=== PATIENT | male | born 1990 | race Native Hawaiian/Other Pacific Islander ===

== ENCOUNTER 2018-04-05 19:25 | Emergency (ER) | payer OTHER ==
[~2018-04-05] VITALS: Ht 172.7 cm; Wt 77.3 kg
[2018-04-05] MEDS ORDERED: CYMB60CA3 PO (19:35)
--- NOTE | 2018-04-05 20:59 | REPVR ---
EXAM: CT Lumbar Spine Without Contrast EXAM DATE/TIME: 04/05/2018 8:32 PM CLINICAL HISTORY: 27 years old, male; Pain; Low back pain and sciatica; Bilateral; Additional info: Trauma, pain and sciatica lower legs TECHNIQUE: Axial computed tomography images of the lumbar spine without intravenous contrast. All CT scans at this facility use at least one of these dose optimization techniques: automated exposure control; mA and/or kV adjustment per patient size (includes targeted exams where dose is matched to clinical indication); or iterative reconstruction. Coronal and sagittal reformatted images were created and reviewed. COMPARISON: No relevant prior studies available. FINDINGS: Vertebrae: No acute fracture. Normal alignment. Soft tissues: Unremarkable. DISCS/SPINAL CANAL/NEURAL FORAMINA: L1-L2: Early degenerative spurring anteriorly. No significant disc bulge or protrusion. No significant facet arthropathy. No spinal or foraminal stenosis. L2-L3: Early degenerative change of the left facet with no spinal or foraminal stenosis. L3-L4: The disc is adequately well maintained with early degenerative change of the left facet. No spinal or foraminal stenosis. L4-L5: Disc is adequately well maintained. There is early facet arthropathy and no spinal or foraminal stenosis. L5-S1: Minimal posterior central protrusion of the disc with early osteophytes and minimal facet arthropathy. No significant spinal or foraminal stenosis. IMPRESSION: 1. Early degenerative disc and facet changes with no spinal or foraminal stenosis. 2. No acute fracture or subluxation. Electronically signed by: Joseph Holbrook On 04/05/2018 20:59:01 PM
[2018-04-05 21:27] VITALS: BP 122/65
== END 2018-04-05 21:29 | disposition home or self-care (01) ==
LOC: M ED 19:25
DX: S20.229A Contusion of unspecified back wall of thorax, initial encounter (principal); W10.9XXA Fall (on) (from) unspecified stairs and steps, initial encounter; Y92.89 Other specified places as the place of occurrence of the external cause; M51.37 Other intervertebral disc degeneration, lumbosacral region; Z79.899 Other long term (current) drug therapy

== ENCOUNTER 2018-04-12 19:31 | Emergency (ER) | payer OTHER ==
[~2018-04-12] VITALS: Ht 172.7 cm; Wt 77.3 kg
[~2018-04-12 19:31] MED LIST: CYMB60CA3 PO
[2018-04-12] MEDS ORDERED: KETOROLAC 30 MG/ML VIAL (J1885) IV ONE (20:15)
[2018-04-12 20:35] LABS: BASO % 0.2 % (0.0-1.0); EOS % 0.2 % (0.0-3.0); HEMATOCRIT 45.2 % (42.0-52.0); HEMOGLOBIN 15.7 g/dl (13.5-17.5); LYMPH # 1.7 10^3/uL (1.5-6.5); LYMPH % 17.1 % (24.0-44.0); MEAN CORPUSCULAR HEMOGLOBIN 30.3 pg (27.0-33.0); MEAN CORPUSCULAR HGB CONC 34.7 g/dl (32.0-36.5); MEAN CORPUSCULAR VOLUME 87.1 fl (80.0-96.0); MONO # 0.3 10^3/uL (0.0-0.8); MONO % 3.2 % (0.0-5.0); NEUTROPHILS # 7.6 10^3/uL (1.8-7.7); PLATELET COUNT, AUTOMATED 246 10^3/uL (150-450); RED BLOOD COUNT 5.19 10^6/uL (4.30-6.10); WHITE BLOOD COUNT 9.7 10^3/uL (4.0-10.0)
[2018-04-12 20:54] LABS: BLOOD UREA NITROGEN 13 MG/DL (7-18); CALCIUM LEVEL 9.3 MG/DL (8.5-10.1); CARBON DIOXIDE LEVEL 27 MEQ/L (21-32); CHLORIDE LEVEL 104 MEQ/L (98-107); CREATININE FOR GFR 0.92 MG/DL (0.70-1.30); GLOMERULAR FILTRATION RATE > 60.0 (>60); GLUCOSE, FASTING 106 MG/DL (70-100); POTASSIUM SERUM 4.3 MEQ/L (3.5-5.1); SODIUM LEVEL 138 MEQ/L (136-145)
--- NOTE | 2018-04-12 21:06 | REPVR ---
EXAM: CT Head Without Contrast EXAM DATE/TIME: 04/12/2018 8:17 PM CLINICAL HISTORY: 27 years old, male; Injury or trauma; Fall; Initial encounter; Blunt trauma (contusions or hematomas); Consciousness not specified; Additional info: Fall, incontinence TECHNIQUE: Axial computed tomography images of the head/brain without contrast. All CT scans at this facility use at least one of these dose optimization techniques: automated exposure control; mA and/or kV adjustment per patient size (includes targeted exams where dose is matched to clinical indication); or iterative reconstruction. COMPARISON: No relevant prior studies available. FINDINGS: Brain: Normal. No hemorrhage. No significant white matter disease. No edema. Ventricles: Normal. No ventriculomegaly. Bones/joints: Unremarkable. No acute fracture. Sinuses: Visualized sinuses are unremarkable. No acute sinusitis. Mastoid air cells: Visualized mastoid air cells are unremarkable. No mastoid effusion. Soft tissues: Unremarkable. IMPRESSION: No acute intracranial abnormality. Electronically signed by: Sheyla Pruett On 04/12/2018 21:06:14 PM
--- NOTE | 2018-04-12 21:09 | REPVR ---
EXAM: CT Cervical Spine Without Contrast EXAM DATE/TIME: 04/12/2018 8:17 PM CLINICAL HISTORY: 27 years old, male; Injury or trauma; Fall; Initial encounter; Blunt trauma; Additional info: Fall, incontinence TECHNIQUE: Axial computed tomography images of the cervical spine without intravenous contrast. All CT scans at this facility use at least one of these dose optimization techniques: automated exposure control; mA and/or kV adjustment per patient size (includes targeted exams where dose is matched to clinical indication); or iterative reconstruction. Coronal and sagittal reformatted images were created and reviewed. COMPARISON: No relevant prior studies available. FINDINGS: Vertebrae: No acute fracture. Normal alignment. Soft tissues: Unremarkable. Lungs: Lung apices are normal. DISCS/SPINAL CANAL/NEURAL FORAMINA: C2-C3: No disc herniation. No spinal stenosis. No neural foraminal narrowing. C3-C4: No disc herniation. No spinal stenosis. No neural foraminal narrowing. C4-C5: No disc herniation. No spinal stenosis. No neural foraminal narrowing. C5-C6: No disc herniation. No spinal stenosis. No neural foraminal narrowing. C6-C7: No disc herniation. No spinal stenosis. No neural foraminal narrowing. C7-T1: No disc herniation. No spinal stenosis. No neural foraminal narrowing. IMPRESSION: No acute findings. Electronically signed by: Sheyla Pruett On 04/12/2018 21:09:00 PM
--- NOTE | 2018-04-12 21:11 | REPVR ---
EXAM: CT Lumbar Spine Without Contrast EXAM DATE/TIME: 04/12/2018 8:17 PM CLINICAL HISTORY: 27 years old, male; Injury or trauma; Fall; Initial encounter; Blunt trauma (contusions or hematomas); Additional info: Fall, incontinence TECHNIQUE: Axial computed tomography images of the lumbar spine without intravenous contrast. All CT scans at this facility use at least one of these dose optimization techniques: automated exposure control; mA and/or kV adjustment per patient size (includes targeted exams where dose is matched to clinical indication); or iterative reconstruction. Coronal and sagittal reformatted images were created and reviewed. COMPARISON: CT Spine, lumbar w/o contrast 04/05/2018 8:26 PM FINDINGS: Vertebrae: No acute fracture. Normal alignment. Soft tissues: Unremarkable. DISCS/SPINAL CANAL/NEURAL FORAMINA: L1-L2: No disc herniation. No spinal stenosis. No neural foraminal narrowing. L2-L3: No disc herniation. No spinal stenosis. No neural foraminal narrowing. L3-L4: No disc herniation. No spinal stenosis. No neural foraminal narrowing. L4-L5: No disc herniation. No spinal stenosis. No neural foraminal narrowing. L5-S1: No disc herniation. No spinal stenosis. No neural foraminal narrowing. IMPRESSION: No acute findings. Electronically signed by: Sheyla Pruett On 04/12/2018 21:11:26 PM
[2018-04-12] MEDS ORDERED: LORazepam 2 MG/ML VIAL (J2060) IV STA (21:12)
[2018-04-12] MEDS ORDERED: ONDANSETRON 4MG/2ML VIAL (J2405) IV ONE (21:15)
--- NOTE | 2018-04-12 21:36 | REPVR ---
EXAM: MR Lumbar Spine Without Contrast. EXAM DATE/TIME: 04/12/2018 9:02 PM CLINICAL HISTORY: 27 years old, male; Signs and symptoms; Other: Leg weakness and incontinence; Additional info: Low back pain, bladder/bowel incont TECHNIQUE: Multiplanar magnetic resonance images of the lumbar spine without intravenous contrast. COMPARISON: CT Spine, lumbar w/o contrast 04/12/2018 8:06 PM FINDINGS: The study could not be completed as the patient began vomiting. The axial T2-weighted images were not completed. Vertebrae: Unremarkable. No fracture. Spinal cord: Normal signal. No cord compression. The conus is posterior to T12-L1. No signal abnormality seen in the visualized portion of the conus. DISCS/SPINAL CANAL/NEURAL FORAMINA: L1-L2: No significant disc disease. No stenosis. L2-L3: No significant disc disease. No stenosis. L3-L4: No significant disc disease. No stenosis. L4-L5: No significant disc disease. No stenosis. L5-S1: Minimal loss of normal signal within the annulus on the T2 weighted images. Small posterior concentric tear within the disc annulus. Small left posterior paracentral disc protrusion.. No stenosis. Soft tissues: Incidental note is made of a distended bladder. The bladder measures at least 14 x 10 x 10 cm for a volume of 730 cc IMPRESSION: Mild degenerative changes at L5-S1 with small concentric annular tear posteriorly. Small left posterolateral disc protrusion. No stenosis. No cord compression. 2. The bladder is distended containing at least 730 cc of urine Electronically signed by: Sheyla Pruett On 04/12/2018 21:36:14 PM
[2018-04-12 22:45] LABS: AMPHETAMINES LEVEL URINE NEGATIVE (NEGATIVE); BARBITURATES URINE NEGATIVE (NEGATIVE); BENZODIAZEPINES URINE NEGATIVE (NEGATIVE); CANNABINOIDS URINE NEGATIVE (NEGATIVE); COCAINE METABOLITE URINE NEGATIVE (NEGATIVE); METHADONE URINE NEGATIVE (NEGATIVE); OPIATES URINE NEGATIVE (NEGATIVE); PHENCYCLIDINE URINE NEGATIVE (NEGATIVE)
[2018-04-12 23:06] VITALS: BP 139/86
== END 2018-04-12 23:15 | disposition short-term general hospital (02) ==
LOC: EDBD 19:31 → M ED 19:31
DX: M54.5 Low back pain (principal); R32 Unspecified urinary incontinence; R29.6 Repeated falls; Z79.899 Other long term (current) drug therapy
CPT/HCPCS: 70450; 72125; 72131; 72148; 80048; 80307; 85025; 96374; 96375; 99285; J1885; J2405

== ENCOUNTER 2018-04-16 07:38 | Emergency (ER) | payer OTHER ==
[~2018-04-16] VITALS: Ht 172.7 cm; Wt 76.4 kg
[2018-04-16] MEDS ORDERED: KETOROLAC 60 MG/2 ML VIAL (J1885) IM ONE (08:00)
--- NOTE | 2018-04-16 08:26 | REP ---
Acute abdominal series: Three views. History: Diffuse abdominal pain. Findings: Upright chest radiograph is normal. There is no evidence of infiltrate or free subdiaphragmatic air. Heart size is normal. Supine and erect views of the abdomen show air and some fluid in the right colon. There is some scattered gas in the left colon. No large or small bowel dilation is seen. Psoas margins and flank stripes are intact. No mass or organomegaly seen. Impression: Colonic air fluid levels without large or small bowel dilation. Question enteritis. No evidence of free air or other acute abnormality. Electronically Signed by Cedric Argueta MD 04/16/2018 10:02 A
[2018-04-16] MEDS ORDERED: NS 1,000 ML IV ONE (08:30)
[2018-04-16] MEDS ORDERED: METOCLOPRAMIDE INJ 10MG/2ML VIAL (J2765) IV ONE (08:30)
[2018-04-16] MEDS: GASTROGRAFIN SOLUTION 30ML PO SCH ×2 (08:48→09:31)
[2018-04-16 08:49] LABS: BASO % 0.3 % (0.0-1.0); EOS # 0.1 10^3/uL (0.0-0.50); EOS % 1.3 % (0.0-3.0); HEMOGLOBIN 15.2 g/dl (13.5-17.5); LYMPH # 2.2 10^3/uL (1.5-6.5); LYMPH % 19.7 % (24.0-44.0); MEAN CORPUSCULAR HGB CONC 34.5 g/dl (32.0-36.5); MEAN CORPUSCULAR VOLUME 86.8 fl (80.0-96.0); MONO # 0.8 10^3/uL (0.0-0.8); MONO % 7.3 % (0.0-5.0); NEUTROPHILS # 7.8 10^3/uL (1.8-7.7); NEUTROPHILS % 70.9 % (36.0-66.0); PLATELET COUNT, AUTOMATED 252 10^3/uL (150-450); RED BLOOD COUNT 5.07 10^6/uL (4.30-6.10)
[2018-04-16 08:58] LABS: APPEARANCE, URINE CLEAR (CLEAR); BACTERIA, URINE AUTO NEGATIVE (NEGATIVE); BILIRUBIN, URINE AUTO NEGATIVE (NEGATIVE); BLOOD, URINE BLOOD NEGATIVE (NEGATIVE); COLOR, URINE YELLOW (YELLOW); GLUCOSE, URINE (UA) AUTO NEGATIVE (NEGATIVE); KETONE, URINE AUTO TRACE mg/dL (NEGATIVE); LEUKOCYTE ESTERASE, URINE AUTO NEGATIVE (NEGATIVE); MUCUS, URINE SMALL (NEGATIVE); NITRITE, URINE AUTO NEGATIVE (NEGATIVE); PROTEIN, URINE AUTO NEGATIVE (NEGATIVE); RBC, URINE AUTO 1 /HPF (0-3); SPECIFIC GRAVITY URINE AUTO 1.024 (1.002-1.035); SQUAMOUS EPITHELIAL CELL UR AU 0 /HPF (0-6); WBC, URINE AUTO 1 /HPF (0-3)
[2018-04-16 09:22] LABS: ALBUMIN 4.2 GM/DL (3.2-5.2); ALT/SGPT 17 U/L (12-78); BILIRUBIN,TOTAL 1.1 MG/DL (0.2-1.0); BLOOD UREA NITROGEN 13 MG/DL (7-18); C REACTIVE PROTEIN QUANTITATIV 0.86 MG/DL (0.00-0.30); CALCIUM LEVEL 9.7 MG/DL (8.5-10.1); CARBON DIOXIDE LEVEL 29 MEQ/L (21-32); CHLORIDE LEVEL 104 MEQ/L (98-107); GLOMERULAR FILTRATION RATE > 60.0 (>60); GLUCOSE, FASTING 116 MG/DL (70-100); LIPASE 149 U/L (73-393); POTASSIUM SERUM 3.9 MEQ/L (3.5-5.1); SODIUM LEVEL 140 MEQ/L (136-145); TOTAL PROTEIN 8.7 GM/DL (6.4-8.2)
[2018-04-16] MEDS ORDERED: ISOVUE-370 76% 100ML VIAL (Q9967) As Ordered ONE (10:23)
[2018-04-16 11:09] VITALS: BP 123/76
--- NOTE | 2018-04-16 11:34 | REP ---
CT ABDOMEN AND PELVIS WITH IV AND ORAL CONTRAST: HISTORY: Question obstruction. Air-fluid levels on x-ray. Constipation. No comparison CT study. Comparison is made with today's chest and abdomen series. CT CONTRAST DOSE: 100 mL of intravenous Isovue 370. CT FINDINGS: Preliminary digital paintless dent repair technician radiograph shows a few air-filled small bowel loops in the central abdomen. The lung bases are clear. The liver and the spleen are normal in size, homogeneous in texture on postcontrast images with the exception of a small hypervascular area in the liver adjacent to the gallbladder. This measures 1.1 cm in greatest diameter and is compatible with a hepatic hemangioma. No gallbladder abnormalities observed. The adrenal glands are normal bilaterally. No pancreatic abnormality is seen. The kidneys enhance symmetrically and are morphologically intact. Normal caliber aorta is seen. The common hepatic artery takes a direct aortic origin, which is a normal variant. No other vascular abnormality is seen. Seminal vesicles, prostate, and urinary bladder are unremarkable. Small and large bowel loops are normal by CT. No obstruction is seen. No mass or inflammatory change is noted. A normal appendix is seen looped into the central pelvis in the midline. No abdominal wall defect is seen. IMPRESSION: 1.1 cm hemangioma of the liver in the left hepatic lobe adjacent to the gallbladder. Otherwise, negative CT study abdomen and pelvis with IV and oral contrast. No gastrointestinal obstructive or inflammatory lesion is seen. There is no evidence of fecal impaction or obstipation. Normal appendix. Electronically Signed by Cedric Argueta MD 04/16/2018 08:31 P
[2018-04-16] MEDS ORDERED: COLA100C5 PO (11:41)
[2018-04-16] MEDS ORDERED: MAGN1SOL2 PO (11:41)
== END 2018-04-16 11:53 | disposition home or self-care (01) ==
LOC: M ED 07:38
DX: K59.00 Constipation, unspecified (principal); F33.9 Major depressive disorder, recurrent, unspecified; Z79.899 Other long term (current) drug therapy
CPT/HCPCS: 74021; 74177; 80053; 81001; 83690; 85025; 86140; 96360; 96361; 96372; 99284; J1885; Q9963; Q9967

== ENCOUNTER 2018-08-19 02:03 | Emergency (ER) | payer OTHER ==
[~2018-08-19] VITALS: Ht 175.3 cm; Wt 77.3 kg
[~2018-08-19 02:03] MED LIST changes: +COLA100C5 PO; +MAGN1SOL2 PO
[2018-08-19] MEDS ORDERED: IBUP80TA PO (02:11)
[2018-08-19] MEDS ORDERED: KETOROLAC 60 MG/2 ML VIAL (J1885) IM ONE (03:15)
[2018-08-19 03:45] VITALS: BP 141/65
--- NOTE | 2018-08-19 08:43 | REP ---
RIGHT SHOULDER, THREE VIEWS: There is no evidence of an acute fracture, dislocation or intrinsic bone disease. IMPRESSION: No fracture or dislocation. Electronically Signed by Mick Rodriguez MD 08/20/2018 10:30 A
== END 2018-08-19 03:46 | disposition home or self-care (01) ==
LOC: M ED 02:03
DX: M25.511 Pain in right shoulder (principal)
CPT/HCPCS: 73030; 96372; 99284; J1885

== ENCOUNTER 2019-02-03 06:35 | Emergency (ER) | payer OTHER ==
[~2019-02-03] VITALS: Ht 172.7 cm; Wt 79.1 kg
[~2019-02-03 06:35] MED LIST changes: +IBUP80TA PO
[2019-02-03 07:11] VITALS: BP 141/78
== END 2019-02-03 07:35 | disposition home or self-care (01) ==
LOC: M ED 06:35
DX: S80.12XA Contusion of left lower leg, initial encounter (principal); V49.49XA Driver injured in collision with other motor vehicles in traffic accident, initial encounter; Y92.410 Unspecified street and highway as the place of occurrence of the external cause; F33.9 Major depressive disorder, recurrent, unspecified

== ENCOUNTER 2019-04-28 22:03 | Emergency (ER) | payer OTHER ==
[~2019-04-28] VITALS: Ht 172.7 cm; Wt 75.9 kg
[2019-04-28] MEDS ORDERED: ONDANSETRON 4 MG ORAL DISINTEGRATING TAB (Q0162 PER 1MG) PO ONE (22:15)
[2019-04-28] MEDS ORDERED: ACETAMINOPHEN TAB 650MG DOSE (2X325MG) PO ONE (22:45)
[2019-04-28 22:46] LABS: INFLUENZA A AMPLIFICATION POSITIVE (NEGATIVE); INFLUENZA B AMPLIFICATION NEGATIVE (NEGATIVE)
[2019-04-28] MEDS ORDERED: OSELTAMIVIR PHOSPHATE 75 MG CAP (TAMIFLU) PO ONE (23:15)
[2019-04-28] MEDS ORDERED: METOCLOPRAMIDE 10 MG TAB PO ONE (23:15)
[2019-04-28] MEDS ORDERED: ZOFR4TAB16 PO (23:26)
[2019-04-28] MEDS ORDERED: OSEL75CA PO (23:26)
[2019-04-28] MEDS ORDERED: IBUP-1022 PO (23:26)
[2019-04-28 23:33] VITALS: BP 136/78
== END 2019-04-28 23:45 | disposition home or self-care (01) ==
LOC: M ED 22:03
DX: J10.1 Influenza due to other identified influenza virus with other respiratory manifestations (principal); R50.9 Fever, unspecified; R68.89 Other general symptoms and signs
CPT/HCPCS: 87502; 99283; Q0162

== ENCOUNTER 2020-01-26 03:31 | Emergency (ER) | payer OTHER ==
[~2020-01-26] VITALS: Ht 175.3 cm; Wt 82.9 kg
[~2020-01-26 03:31] MED LIST changes: +IBUP-1022 PO; +OSEL75CA PO; +ZOFR4TAB16 PO
[2020-01-26] MEDS ORDERED: MELA10CA2 PO (03:43)
[2020-01-26] MEDS ORDERED: PROAAER10 INH (03:45)
--- NOTE | 2020-01-26 04:28 | REPVR ---
PROCEDURE INFORMATION: Exam: CT Head Without Contrast Exam date and time: 01/26/2020 3:56 AM Age: 29 years old Clinical indication: Injury or trauma; Fall; Blunt trauma (contusions or hematomas); Additional info: Ran into door while sleep walking to bathroom TECHNIQUE: Imaging protocol: Computed tomography of the head without contrast. Radiation optimization: All CT scans at this facility use at least one of these dose optimization techniques: automated exposure control; mA and/or kV adjustment per patient size (includes targeted exams where dose is matched to clinical indication); or iterative reconstruction. COMPARISON: CT Head without contrast 04/12/2018 8:02 PM FINDINGS: Brain: The cortical/white matter interfaces are preserved throughout the brain. There is no evidence of intracranial hemorrhage. No parenchymal mass lesions identified. Cerebral ventricles: The ventricular system is normal in size and configuration. Bones/joints: No acute fractures of the skull are identified. Paranasal sinuses: There is a benign sinus mucous retention cyst or polyp partially visualized in the left maxillary sinus. The paranasal sinuses are otherwise clear. No fluid levels. Mastoid air cells: The mastoid air cells are clear. Soft tissues: There is a superficial defect consistent with a laceration and mild adjacent soft tissue swelling and infiltration in the anterior right frontal region. IMPRESSION: 1. Normal appearance of the brain. No evidence of acute intracranial injury. 2. Right anterior frontal laceration and associated small superficial hematoma. Electronically signed by: Manju Monge On 01/26/2020 04:28:07 AM
[2020-01-26] MEDS ORDERED: LIDOCAINE 1% MDV 20ML VIAL SC ONE (05:00)
[2020-01-26 05:15] VITALS: BP 138/77
== END 2020-01-26 06:15 | disposition home or self-care (01) ==
LOC: M ED 03:31
DX: S01.81XA Laceration without foreign body of other part of head, initial encounter (principal); S06.0X9A Concussion with loss of consciousness of unspecified duration, initial encounter; W22.8XXA Striking against or struck by other objects, initial encounter; Y92.019 Unspecified place in single-family (private) house as the place of occurrence of the external cause; Y93.9 Activity, unspecified; Z79.899 Other long term (current) drug therapy

== ENCOUNTER 2020-04-29 16:48 | Emergency (ER) | payer OTHER ==
[~2020-04-29] VITALS: Ht 175.3 cm; Wt 81.8 kg
[~2020-04-29 16:48] MED LIST changes: +MELA10CA2 PO; +PROAAER10 INH
--- OUTSIDE RECORDS SUMMARY | 2020-04-29 16:53 | CCD ---
Author Organization Unknown Address [address] [place] [address] Phone [phone] Care Team Providers Care Fuel Cell Systems Engineer Name Role Phone [facility] 3 [phone] Allergies Code Code System Name Reaction Severity Status Onset NKDA Medications No Medications Reported Problems None recorded. Procedures Date Name Performed by 11/18/2018 Shoulder Joint Surgery Notes: right labrum Information not available Results Lab Results Date Name Specimen Result Interpretation Description Value Range Status Address 03/16/2020 [facility] Pdf Report NOS No observation recorded. [facility]: [facility] 03/16/2020 COVID-19 RNA (SARS-CoV-2), QL, hadoop java developer-PCR, Respirat ory Specimen NOS Normal Sars-cov-2 negative negative Final [facility]: [facility] [place] Past Encounters 03/19/2020 Lumbar Radiculopathy; Degeneration of Lumbar Intervertebral Disc; Degeneration of Lumbosacral Intervertebral Disc; Displacement of Lumbar Intervertebral Disc without Myelopathy; Intervertebral Disc Disorder; Spondylosis without Myelopathy; Lumbosacral Spondylosis without Myelopathy; Inflammation of Sacroiliac Joint Jarvis Cross MD: [id number] [address], Ph. 03/16/2020 Pre-surgery Testing; Viral Screening Jarvis Cross MD: [id number] [address], [facility] [place] [address], Ph. [phone] 03/15/2020 Lumbar Radiculopathy; Degeneration of Lumbar Intervertebral Disc; Degeneration of Lumbosacral Intervertebral Disc; Displacement of Lumbar Intervertebral Disc without Myelopathy; Intervertebral Disc Disorder; Spondylosis without Myelopathy; Lumbosacral Spondylosis without Myelopathy; Inflammation of Sacroiliac Joint Jarvis Cross MD: [id number] [facility], [facility] [place] [address], Ph. Social History Tobacco Smoking Status Never Smoker Vaccine List None recorded. Plan of Care Reminders Provider Appointments None recorded. Lab None recorded. Referral None recorded. Procedures None recorded. Surgeries None recorded. Imaging None recorded. Vitals Height Weight BMI Blood Pressure 5 ft 8 in 192 lbs 29.2 kg/m2 139/96 mm[Hg]
--- OUTSIDE RECORDS SUMMARY | 2020-04-29 16:53 | CCD | Continuity of Care Document ---
Author Author Luis BANKS MD Organization Unknown Address [address] [place] [address] Phone [phone] Care Team Providers Care Laborer Tanbark Name Role Phone Anam Arellano DO AUTM [phone] Problems Description No Information Available Social History Type Date Description Comments Sex Unknown Allergies, Adverse Reactions, Alerts Description No Information Available Medications Description No Information Available Immunizations Description No Information Available Vital Signs Date Vital Result Comment 04/12/2020 9:07am Body Temperature 97.7 F Height 68.5 inches 5'8.50" Weight 190.00 lb BMI (Body Mass Index) 28.5 kg/m2 Results Description No Information Available Procedures Date Code Description Status 04/12/2020 98380 X-Ray Spine Lumbosacral Complete Inc Bending Views Min Of 6 Completed Medical Devices Description No Information Available Encounters Type Date Location Provider Dx Diagnosis Office Visit 04/12/2020 8:30a [place] Chandler Banks MD M54.5 Low back pain M47.896 Other spondylosis, lumbar re gion Assessments Date Code Description Provider 04/12/2020 M47.896 Other spondylosis, lumbar region Chandler Banks MD 04/12/2020 M54.5 Low back pain Chandler Banks MD 04/12/2020 M47.896 Other spondylosis, lumbar region Chandler Banks MD Plan of Treatment 04/12/2020 - Chandler Banks MD* M54.5 Low back pain* Follow up:* 2-3 month back keyona with BLB * M47.896 Other spondylosis, lumbar region Functional Status Description No Information Available Mental Status Description No Information Available Referrals Refer to Reason for Referral Status Appt Date Chandler Banks MD DME PER [employer] WEB NO AUTH R EQUIRED FOR VISTA 627(L1812) TO PARISH NT Created [address] [place] [address] [phone] Chandler Banks MD LOW BACK PAIN Created [address] [place] [address] [phone] Chandler Banks MD LOW BACK PAIN Created [address] [place] [address] [phone]
--- OUTSIDE RECORDS SUMMARY | 2020-04-29 16:53 | CCD ---
Author Organization Unknown Address [address] [place] [address] Phone [phone] Care Team Providers Care Parimutuel Ticket Checker Name Role Phone [facility] [phone] Allergies Code Code System Name Reaction Severity Status Onset NKDA Medications No Medications Reported Problems None recorded. Procedures Date Name Performed by 11/18/2018 Shoulder Joint Surgery Notes: right labrum Information not available Results Lab Results None recorded. Past Encounters 03/16/2020 Pre-surgery Testing; Viral Screening Jarvis Cross MD: [id number] [address], [facility] [place] [address], Ph. [phone] 03/15/2020 Lumbar Radiculopathy; Degeneration of Lumbar Intervertebral Disc; Degeneration of Lumbosacral Intervertebral Disc; Displacement of Lumbar Intervertebral Disc without Myelopathy; Intervertebral Disc Disorder; Spondylosis without Myelopathy; Lumbosacral Spondylosis without Myelopathy; Inflammation of Sacroiliac Joint Jarvis Cross MD: [id number] [facility], [place] [address], Ph. Social History Tobacco Smoking Status Never Smoker Vaccine List None recorded. Plan of Care Reminders Provider Appointments None recorded. Lab None recorded. Referral None recorded. Procedures None recorded. Surgeries None recorded. Imaging None recorded. Vitals Height Weight BMI Blood Pressure 5 ft 8 in 192 lbs 29.2 kg/m2 139/96 mm[Hg]
--- OUTSIDE RECORDS SUMMARY | 2020-04-29 16:53 | CCD ---
Author Organization Unknown Address [address] [place] [address] Phone [phone] Care Team Providers Care Production Staff Worker Name Role Phone [facility] [phone] Allergies Code Code System Name Reaction Severity Status Onset NKDA Medications No Medications Reported Problems None recorded. Procedures Date Name Performed by 11/18/2018 Shoulder Joint Surgery Notes: right labrum Information not available Results Lab Results None recorded. Past Encounters 03/15/2020 Lumbar Radiculopathy; Degeneration of Lumbar Intervertebral Disc; Degeneration of Lumbosacral Intervertebral Disc; Displacement of Lumbar Intervertebral Disc without Myelopathy; Intervertebral Disc Disorder; Spondylosis without Myelopathy; Lumbosacral Spondylosis without Myelopathy; Inflammation of Sacroiliac Joint Jarvis Cross MD: [id number] [facility] [address], [address], [place] [address], Ph. Social History Tobacco Smoking Status Never Smoker Vaccine List None recorded. Plan of Care Reminders Provider Appointments None recorded. Lab None recorded. Referral None recorded. Procedures None recorded. Surgeries None recorded. Imaging None recorded. Vitals Height Weight BMI Blood Pressure 5 ft 8 in 192 lbs 29.2 kg/m2 139/96 mm[Hg]
--- OUTSIDE RECORDS SUMMARY | 2020-04-29 16:53 | CCD | Continuity of Care Document ---
Author Author Luis BANKS MD Organization Unknown Address [address] [place] [address] Phone [phone] Care Team Providers Care Knit Goods Mender Name Role Phone Anam Arellano DO AUTM Problems Description No Information Available Social History [...] Available Procedures Date Code Description Status 04/12/2020 59915 X-Ray Spine Lumbosacral Complete Inc Bending Views Min Of 6 Completed Medical Devices Description No Information Available Encounters Description No Information Available Assessments Date Code Description Provider 04/12/2020 M54.5 Low back pain Chandler Banks [...] to Reason for Referral Status Appt Date Cahndler Banks MD DME PER [employer] WEB NO AUTH R EQUIRED FOR VISTA 627(L1812) TO [place]ISH NT Created [address] [place] [address] [address] [place] [address] [phone] Chandler Banks MD LOW BACK PAIN Created [address] [facility] [address] [place], [place] [address] [phone] Chandler Banks MD LOW BACK PAIN Created [address] [place] [address] [phone]
--- OUTSIDE RECORDS SUMMARY | 2020-04-29 16:53 | CCD | Continuity of Care Document ---
Author Author Luis BANKS MD Organization Unknown Address [address] [place] [address] Phone [phone] Care Team Providers Care Mathematics Teacher Name Role Phone Anam Arellano DO AUTM [phone] Problems Description No Information Available Social History [...] Available Procedures Date Code Description Status 04/12/2020 00255 X-Ray Spine Lumbosacral Complete Inc Bending Views Min Of 6 Completed Medical Devices Description No Information Available Encounters Type Date Location Provider Dx Diagnosis Office Visit 04/12/2020 8:30a [place] Chandler Banks MD M54.5 Low back pain [...] Appt Date Chandler Banks MD DME PER [employer] WEB NO AUTH R EQUIRED FOR VISTA 627(L1812) TO PARISH NT Created [address] [place] [address] [phone] Chandler Banks MD LOW BACK PAIN Created [address] [place] [address] [phone] Chandler Banks MD LOW BACK PAIN Created [address] [place] [address] [phone]
--- OUTSIDE RECORDS SUMMARY | 2020-04-29 16:54 | CCD ---
Author Author [facility] Organization [facility] Address Unknown Phone Unavailable Care Team Providers Care Electrification Adviser Name Role Phone Young BRITT Unavailable Unavailable Jackelin Cross MD Unavailable Unavailable Jackelin Cross MD Unavailable Unavailable Jackelin Cross MD Unavailable Unavailable Jackelin Cross MD Unavailable Unavailable Jackelin Cross MD Unavailable Unavailable Jackelin Cross MD Unavailable Unavailable Jackelin Cross MD Unavailable Unavailable Jackelin Cross MD Unavailable Unavailable Jackelin Cross MD Unavailable Unavailable Jackelin Cross MD Unavailable Unavailable Jackelin Cross MD Unavailable Unavailable Jackelin Cross MD Unavailable Unavailable Jackelin Cross MD Unavailable Unavailable Jackelin Cross MD Unavailable Unavailable Jackelin Cross MD Unavailable Unavailable Jackelin Cross MD Unavailable Unavailable Jackelin Cross MD Unavailable Unavailable Jackelin Cross MD Unavailable Unavailable Jackelin Cross MD Unavailable Unavailable Jackelin Cross MD Unavailable Unavailable Jackelin Cross MD Unavailable Unavailable Jackelin Cross MD Unavailable Unavailable Jackelin Cross MD Unavailable Unavailable Jackelin Cross MD Unavailable Unavailable Jackelin Cross MD Unavailable Unavailable Bolcasey S Jarvis MACDONALD Unavailable Unavailable BolJackelin peña MD Unavailable Unavailable BollaJackelin MD Unavailable Unavailable BolJackelin peña MD Unavailable Unavailable Bolla S Jarvis MACDONALD Unavailable Unavailable Bolla, Jackelin Conley MD Unavailable Unavailable Bolla, Jackelin Conley MD Unavailable Unavailable Bolcasey, Jackelin Conley MD Unavailable Unavailable Bolla, Jackelin Conley MD Unavailable Unavailable Bolcasey, Jackelin Conley MD Unavailable Unavailable Bolla, S Jarvis MACDONALD Unavailable Unavailable Bolla, Jackelin Conley MD Unavailable Unavailable Bolla, S Jarvis MACDONALD Unavailable Unavailable Bolla, S Jarvis MACDONALD Unavailable Unavailable Bolla, S Jarvis MACDONALD Unavailable Unavailable Bolcasey, S Jarvis MACDONALD Unavailable Unavailable Bolla, S Jarvis MACDONALD Unavailable Unavailable Bolcasey, Jackelin Conley MD Unavailable Unavailable Bolcasey, Jackelin Conley MD Unavailable Unavailable Bolcasey, Jackelin Conley MD Unavailable Unavailable Bolcasey, Jackelin Conley MD Unavailable Unavailable Jackelin Cross MD Unavailable Unavailable BolJackelin peña MD Unavailable Unavailable Banks, Neida Arteaga MD Unavailable Unavailable Banks, Neida Arteaga MD Unavailable Unavailable Banks, Neida Arteaga MD Unavailable Unavailable Banks, Neida Arteaga MD Unavailable Unavailable Banks, Neida Arteaga MD Unavailable Unavailable Banks, Neida Arteaga MD Unavailable Unavailable Banks, Neida Arteaga MD Unavailable Unavailable Banks, Neida Artaega MD Unavailable Unavailable Banks, Neida Arteaga MD Unavailable Unavailable Banks, Neida Arteaga MD Unavailable Unavailable Banks, Neida Arteaga MD Unavailable Unavailable Banks, Neida Arteaga MD Unavailable Unavailable Banks, Neida Arteaga MD Unavailable Unavailable Banks, Neida Arteaga MD Unavailable Unavailable Banks, Neida Arteaga MD Unavailable Unavailable Banks, Neida Arteaga MD Unavailable Unavailable Banks, Neida Arteaga MD Unavailable Unavailable Banks, Neida Arteaga MD Unavailable Unavailable BanksNeida MD Unavailable Unavailable BanksNeida MD Unavailable Unavailable Banks, Neida Arteaga MD Unavailable Unavailable Banks, Neida Arteaga MD Unavailable Unavailable Banks, Neida Arteaga MD Unavailable Unavailable Abnks, Neida Arteaga MD Unavailable Unavailable Banks, Neida Arteaga MD Unavailable Unavailable Banks, Neida Arteaga MD Unavailable Unavailable Banks, Neida Arteaga MD Unavailable Unavailable BanksNeida MD Unavailable Unavailable Bansk, Neida Arteaga MD Unavailable Unavailable Banks, Neida Arteaga MD Unavailable Unavailable Banks, Neida Arteaga MD Unavailable Unavailable Banks, Neida Arteaga MD Unavailable Unavailable Banks, Neida Arteaga MD Unavailable Unavailable Banks, L Chandler MD Unavailable Unavailable Banks, L Chandler MD Unavailable Unavailable Banks, L Chandler MD Unavailable Unavailable Banks, L Chandler MD Unavailable Unavailable Banks, L Chandler MD Unavailable Unavailable Banks, L Chandler MD Unavailable Unavailable Banks, L Chadnler MD Unavailable Unavailable Banks, L Chandler MD Unavailable Unavailable Banks, L Chandler MD Unavailable Unavailable Banks, L Chandler MD Unavailable Unavailable Banks, L Chandler MD Unavailable Unavailable Banks, L Chandler MD Unavailable Unavailable Banks, L Chandler MD Unavailable Unavailable Banks, L Chandler MD Unavailable Unavailable Banks, L Chandler MD Unavailable Unavailable Re-disclosure Warning The records that you are about to access may contain information from federally-assisted alcohol or drug abuse programs. If such information is present, then the following federally mandated warning applies: This information has been disclosed to you from records protected by federal confidentiality rules (42 CFR part 2). The federal rules prohibit you from making any further disclosure of this information unless further disclosure is expressly permitted by the written consent of the person to whom it pertains or as otherwise permitted by 42 CFR part 2. A general authorization for the release of medical or other information is NOT sufficient for this purpose. The Federal rules restrict any use of the information to criminally investigate or prosecute any alcohol or drug abuse patient.The records that you are about to access may contain highly sensitive health information, the redisclosure of which is protected by Article 27-F of the [facility] Public Health law. If you continue you may have access to information: Regarding HIV / AIDS; Provided by facilities licensed or operated by the [facility] Office of Mental Health; or Provided by the [facility] Office for People With Developmental Disabilities. If such information is present, then the following [facility] mandated warning applies: This information has been disclosed to you from confidential records which are protected by state law. State law prohibits you from making any further disclosure of this information without the specific written consent of the person to whom it pertains, or as otherwise permitted by law. Any unauthorized further disclosure in violation of state law may result in a fine or mcc sentence or both. A general authorization for the release of medical or other information is NOT sufficient authorization for further disc losure. Allergies and Adverse Reactions Type Description Substance Reaction Status Data Source(s ) No Known Drug Allergies No Known Drug Allergies [facility] No Known Environmental Allergies No Known Environmental Al lergies [facility] No Known Food Allergies No Known Food Allergies [facility] No Known Allergies No Known Allergies [facility] Drug Class NO KNOWN ALLERGIES NO KNOWN ALLERGIES [facility] Encounters Encounter Providers Location Date Indications Data Source(s ) Outpatient Attender: SLOAN BRITT 04/12/19 08:30:21 AM EST - 04/13/2020 08:19:00 AM EST [facility] Patient discharged. Outpatient Attender: Chandler Banks MD Physical Therapy 04/12/2020 0 7:30:00 AM EST [facility] ([facility]) Jarvis Cross MD: [id number], [address], [place] [phone], Ph. Attender: Jarvis Cross MD [place] [facility] 03/19/2020 12:00:00 AM EST DANIEL ([facility]) Jarvis Cross MD: [address], [place] [address], Ph. [phone] Attender: Jarvis Cross MD [place] [facility] 03/16/2020 12:00:00 AM EST DANIEL ([facility]) Jarvis Cross MD: [address], [place] [address], Ph. [phone] Attender: Jarvis Cross [place] [facility] 03/16/2020 12:00:00 AM EST DANIEL ([facility]) Javris Cross MD: [address], [address], [place] [address], Ph. Attender: Jarvis Cross [place] [facility] 03/15/2020 12:00:00 AM EST DANIEL ([facility]) Jarvis Cross MD: [address], [place] [address], Ph. Attender: Jar[place] Cross [place] [facility] 03/15/2020 12:00:00 AM EST DANIEL ([facility]) Jarvis Cross MD: [address] [address], [address], [place] [address], Ph. Attender: Jar[place] Cross MD [place] [facility] 03/15/2020 12:00:00 AM EST DANIEL ([facility]) Insurance Providers Payer name Policy type / Coverage type Policy ID Covered republican ID Covered republican's relationship to michelle Policy Michelle Plan Information [facility] ACTIVE DUTY [id number] SP [id number] [facility] HUMANA - O/P [id number] 18 [id number] U [id number] Self [id number] [facility] ACTIVE DUTY [id number] SP [id number] Problems, Conditions, and Diagnoses Code Display Name Description Problem Type Effective Dates Data Source(s) R99 Ill-defined and unknown cause of mortali ty Ill-defined and unknown cause of mortality Diagnosis 04/13/2020 08:19:00 AM EST [facility] Surgeries/Procedures Procedure Description Date Indications Data Source(s) X-Ray Spine Lumbosacral Complete Inc Bending Views Min Of 6 04/12/2020 12:00:00 AM EST [facility] ([facility]) Results ID Date Data Source [id number] 03/16/2020 12:00:00 AM EST [facility] Name Value Range Interpretation Code Description Data Yolanda rce(s) Supporting Document(s) SARS-CoV-2 NEGATIVE [facility] This lab was ordered by [facility] and reported by [employer]. ID Date Data Source [id number] 03/16/2020 12:00:00 AM EST DANIEL ([facility]) Name Value Range Interpretation Code Description Data Yolanda rce(s) Supporting Document(s) SARS-CoV-2 (COVID-19) RNA [Presence] in Respiratory specimen by [facility] with probe detection negative negative normal Sars-cov-2 [facility] ID Date Data Source [id number] 03/16/2020 12:00:00 AM EST DANIEL ([facility]) Name Value Range Interpretation Code Description Data Yolanda rce(s) Supporting Document(s) Procedure Vital Signs ID Date Data Source UNK Name Value Range Interpretation Code Description Data Source(s) Body mass index (BMI) [Ratio] 28.5 kg/m2 28.5 k g/m2 [facility] ([facility]) Body weight 190.00 [lb_av] 190.00 [lb_av] MEDEN T ([facility]) Body height 68.5 [in_i] 68.5 [in_i] [facility] ([facility]) 5'8.50" Body temperature 97.7 [degF] 97.7 [degF] MEDENT ([facility]) Body weight 192 [lb_av] 192 [lb_av] [facility]ANIEL ([facility]) Systolic blood pressure 139 mm[Hg] 139 mm[Hg] A THENA ([facility]) Body mass index (BMI) [Ratio] 29.2 kg/m2 29.2 k g/m2 DANIEL ([facility]) Body height 68 [in_i] 68 [in_i] DANIEL ([facility]) Diastolic blood pressure 96 mm[Hg] 96 mm[Hg] DANIEL ([facility]) Body weight 192 [lb_av] 192 [lb_av] DANIEL ([facility]) Systolic blood pressure 139 mm[Hg] 139 mm[Hg] A THENA ([facility]) Body mass index (BMI) [Ratio] 29.2 kg/m2 29.2 k g/m2 DANIEL ([facility]) Body height 68 [in_i] 68 [in_i] DANIEL ([facility]) Diastolic blood pressure 96 mm[Hg] 96 mm[Hg] DANIEL ([facility]) Body weight 192 [lb_av] 192 [lb_av] DANIEL ([facility]) Systolic blood pressure 139 mm[Hg] 139 mm[Hg] A THENA ([facility]) Body mass index (BMI) [Ratio] 29.2 kg/m2 29.2 k g/m2 DANIEL ([facility]) Body height 68 [in_i] 68 [in_i] DANIEL ([facility]) Diastolic blood pressure 96 mm[Hg] 96 mm[Hg] DANIEL ([facility])
--- OUTSIDE RECORDS SUMMARY | 2020-04-29 17:56 | CCD ---
Author Author [facility] Organization [facility] Address Unknown Phone Unavailable Care Team Providers Care Burnisher Name Role Phone Young BRITT Unavailable Unavailable [...] Unavailable Unavailable BolJackelin peña MD Unavailable Unavailable BolJackelin peña MD Unavailable Unavailable Bolla S Jarvis MACDONALD Unavailable Unavailable BolJackelin peña MD Unavailable Unavailable Bolla S Jarvis MACDONALD Unavailable Unavailable Bolla, S [...] Unavailable Bolla, S Jarvis MACDONALD Unavailable Unavailable Bolcasey S Jarvis MACDONALD Unavailable Unavailable Bolla, S Jarvis MACDONALD Unavailable Unavailable Bolcasey, Jackelin Conley MD Unavailable Unavailable Bolcasey, S Jarvis MACDONALD Unavailable Unavailable Bolcasey, S Jarvis MACDONALD Unavailable Unavailable Bolcasey, Jackelin Conley MD Unavailable Unavailable Jackelin Cross MD Unavailable Unavailable Banks, Neida Arteaga MD [...] is protected by Article 27-F of the [facility] Public Health law. If you continue you may have access to information: Regarding HIV / AIDS; Provided by facilities licensed or operated by the [facility] Office of Mental Health; or Provided by the [facility] Office for People With Developmental Disabilities. If such information is present, then the following [facility] mandated warning applies: This information has [...] law may result in a fine or prison sentence or both. A general authorization for the release of medical or other information is NOT sufficient authorization for further disc losure. Allergies and Adverse Reactions Type Description Substance Reaction Status Data Source(s ) No Known Drug Allergies No Known Drug Allergies [facility] No Known Environmental Allergies No Known Environmental Al lergies [facility] No Known Food Allergies No Known Food Allergies [facility] No Known Allergies No Known Allergies [facility] Drug Class NO KNOWN ALLERGIES NO KNOWN ALLERGIES [facility] Encounters Encounter Providers Location Date Indications Data Source(s ) Outpatient Attender: SLOAN BRITT 04/12/19 08:30:21 AM EST - 04/13/2020 08:19:00 AM EST [facility] Patient discharged. Outpatient Attender: Chandler Banks MD Physical Therapy 04/12/2020 0 7:30:00 AM EST [facility] ([facility]) Jarvis Cross MD: [address], [place] [address], Ph. Attender: [place] Cross MD [place] [facility] 03/19/2020 12:00:00 AM EST DANIEL ([facility]) Jarvis Cross MD: [address], [place] [address], Ph. [phone] Attender: Jarvis Cross MD [place] [facility] 03/16/2020 12:00:00 AM EST DANIEL ([facility]) Jarvis Cross MD: [address], [place] [address], Ph. [phone] Attender: Jarvis Cross MD [place] [facility] 03/16/2020 12:00:00 AM EST DANIEL ([facility]) Jarvis Cross MD: [address], [address] [place], [place] [address], Ph. Attender: Jarvis Cross [place] [facility] 03/15/2020 12:00:00 AM EST DANIEL ([facility]) Jarvis Cross MD: [address], [place] [address], Ph. Attender: Jarvis Cross MD [place] [facility] 03/15/2020 12:00:00 AM EST DANIEL ([facility]) Jarvis Cross MD: [address] [address], [address], [place] [address], Ph. Attender: Jar[place] Cross MD [place] [facility] 03/15/2020 12:00:00 AM EST DANIEL ([facility]) Insurance Providers Payer name Policy type / Coverage type Policy ID Covered democrat ID Covered democrat's relationship to michelle Policy Michelle Plan Information [facility] ACTIVE DUTY [id number] SP [id number] [facility] HUMANA - O/P [id number] 18 [id number] U [id number] Self [id number] [facility] ACTIVE DUTY [id number] SP [id number] Problems, Conditions, and Diagnoses Code Display Name Description Problem Type Effective Dates Data Source(s) R99 Ill-defined and unknown cause of mortali ty Ill-defined and unknown cause of mortality Diagnosis 04/13/2020 08:19:00 AM EST [facility] Surgeries/Procedures Procedure Description Date Indications Data Source(s) X-Ray Spine Lumbosacral Complete Inc Bending Views Min Of 6 04/12/2020 12:00:00 AM EST MED[facility]RI[facility] ([facility]) Results ID Date Data Source [id number] 03/16/2020 12:00:00 AM EST [facility] Name Value Range Interpretation Code Description Data Yolanda rce(s) Supporting Document(s) SARS-CoV-2 NEGATIVE [facility] This lab was ordered by [facility] and reported by [employer]. ID Date Data Source [id number] 03/16/2020 12:00:00 AM EST DANIEL ([facility]) Name Value Range Interpretation Code Description Data Yolanda rce(s) Supporting Document(s) SARS-CoV-2 (COVID-19) RNA [Presence] in Respiratory specimen by JH with probe detection negative negative normal Sars-cov-2 [facility] ID Date Data Source [id number] 03/16/2020 12:00:00 AM EST DANIEL ([facility]) Name Value Range Interpretation Code Description Data Yolanda rce(s) Supporting Document(s) Procedure Vital Signs ID Date Data Source UNK Name Value Range Interpretation Code Description Data Source(s) Body mass index (BMI) [Ratio] 28.5 kg/m2 28.5 k g/m2 [facility] ([facility]) Body weight 190.00 [lb_av] 190.00 [lb_av] MEDEN T ([facility]) Body height 68.5 [in_i] 68.5 [in_i] [facility] ([facility]) 5'8.50" Body temperature 97.7 [degF] 97.7 [degF] MED[facility] ([facility]) Body weight 192 [lb_av] 192 [lb_av] DANIEL ([facility]) Systolic blood pressure 139 mm[Hg] 139 mm[Hg] A THENA ([facility]) Body mass index (BMI) [Ratio] 29.2 kg/m2 29.2 k g/m2 DANIEL ([facility]) Body height 68 [in_i] 68 [in_i] DANIEL ([facility]) Diastolic blood pressure 96 mm[Hg] 96 mm[Hg] DANIEL ([facility]) Body weight 192 [lb_av] 192 [lb_av] DANIEL ([facility]) Systolic blood pressure 139 mm[Hg] 139 mm[Hg] A THENA ([facility]) Body mass index (BMI) [Ratio] 29.2 kg/m2 29.2 k g/m2 DANIEL ([facility]) Body height 68 [in_i] 68 [in_i] DANIEL ([facility]) Diastolic blood pressure 96 mm[Hg] 96 mm[Hg] DANIEL ([facility]) Body weight 192 [lb_av] 192 [lb_av] DANIEL ([facility]) Systolic blood pressure 139 mm[Hg] 139 mm[Hg] A THENA ([facility]) Body mass index (BMI) [Ratio] 29.2 kg/m2 29.2 k g/m2 DANIEL ([facility]) Body height 68 [in_i] 68 [in_i] DANIEL ([facility]) Diastolic blood pressure 96 mm[Hg] 96 mm[Hg] DANIEL ([facility])
--- NOTE | 2020-04-29 18:45 | REP ---
INDICATION: CHEST PAIN. COMPARISON: Comparison chest x-ray 16 April 2018. TECHNIQUE: Portable upright AP chest radiograph. FINDINGS: The lungs are well inflated and free of infiltrate. Pleural angles are sharp. Heart size is normal. Pulmonary vasculature is not increased. Monitoring electrodes are seen. IMPRESSION: No active disease. <Electronically signed by Gume Argueta > 04/29/20 0728
[2020-04-29 19:23] LABS: BASO % 0.5 % (0.0-1.0); EOS # 0.1 10^3/uL (0.0-0.5); EOS % 2.5 % (0.0-3.0); HEMOGLOBIN 13.7 g/dl (13.5-17.5); LYMPH # 2.3 10^3/uL (1.5-5.0); LYMPH % 41.1 % (24.0-44.0); MEAN CORPUSCULAR HGB CONC 32.6 g/dl (32.0-36.5); MEAN CORPUSCULAR VOLUME 88.8 fl (80.0-96.0); MONO # 0.5 10^3/uL (0.0-0.8); MONO % 8.3 % (2.0-8.0); NEUTROPHILS # 2.6 10^3/uL (1.5-8.5); NEUTROPHILS % 47.4 % (36.0-66.0); PLATELET COUNT, AUTOMATED 189 10^3/uL (150-450); RED BLOOD COUNT 4.73 10^6/uL (4.30-6.10); WHITE BLOOD COUNT 5.6 10^3/uL (4.0-10.0)
[2020-04-29 19:27] LABS: C REACTIVE PROTEIN QUANTITATIV < 0.30 MG/DL (0.00-0.30); CPK CREATINE PHOSPHOKINASE 214 U/L (39-308); MB/CK RELATIVE INDEX 0.47 (< OR =4); TROPONIN I 0.04 NG/ML (< 0.10)
[2020-04-29 19:34] LABS: ALBUMIN 3.9 GM/DL (3.2-5.2); ALT/SGPT 75 U/L (12-78); BILIRUBIN,DIRECT 0.2 MG/DL (0.0-0.2); BILIRUBIN,TOTAL 0.6 MG/DL (0.2-1.0); BLOOD UREA NITROGEN 13 MG/DL (7-18); CALCIUM LEVEL 8.9 MG/DL (8.5-10.1); CARBON DIOXIDE LEVEL 28 MEQ/L (21-32); CHLORIDE LEVEL 108 MEQ/L (98-107); CREATININE FOR GFR 1.16 MG/DL (0.70-1.30); FREE T4 0.89 NG/DL (0.76-1.46); GLOMERULAR FILTRATION RATE > 60.0 (>60); GLUCOSE, FASTING 86 MG/DL (70-100); POTASSIUM SERUM 4.1 MEQ/L (3.5-5.1); SODIUM LEVEL 140 MEQ/L (136-145); TOTAL PROTEIN 8.1 GM/DL (6.4-8.2)
[2020-04-29 19:51] LABS: ERYTHROCYTE SEDIMENTATION RATE 9 mm/hr (0-15)
[2020-04-29 20:00] VITALS: BP 120/75
[2020-04-29] MEDS ORDERED: IBUP-1022 PO (20:11)
--- NOTE | 2020-04-30 08:19 | ECGEPIP ---
[facility] - ED Test Date: 2020-04-29 Pat Name: MARY GARZA Department: Room: - Gender: Male Dental Receptionist: HILARIO : 1990 Requested By: AWAIS Guerrero Order Number: [id number] Reading MD: Danielle Marrufo Measurements Intervals [place] Rate: 75 P: 70 SD: 164 QRS: 79 QRSD: 104 T: 34 QT: 364 QTc: 406 Interpretive Statements Normal sinus rhythm ST elevation, consider early repolarization, pericarditis, or injury, clinical c correlation no prior Electronically Signed on 04-30-2020 8:19:07 EST by Danielle Marrufo
== END 2020-04-29 20:20 | disposition home or self-care (01) ==
LOC: M ED 16:48
DX: R07.81 Pleurodynia (principal)

== ENCOUNTER 2020-10-12 00:43 | Emergency (ER) | payer OTHER ==
[~2020-10-12] VITALS: Ht 175.3 cm; Wt 81.8 kg
[~2020-10-12 00:43] MED LIST changes: -CYMB60CA3 PO; +CYMB60CA4 PO
[2020-10-12 00:44] VITALS: BP 135/72
[2020-10-12] MEDS ORDERED: albuterol hfa (00:53)
[2020-10-12] MEDS ORDERED: albuterol hfa INH (00:53)
== END 2020-10-12 03:07 | disposition left against medical advice (07) ==
LOC: M ED 00:43
DX: Z53.21 Procedure and treatment not carried out due to patient leaving prior to being seen by health care provider (principal)